=== PATIENT | male | born 1990 | race Caucasian/White ===

== ENCOUNTER 2018-08-01 06:16 | Day surgery (SDC) | payer OTHER ==
[2018-08-01] VITALS (14 sets, daily range): BP systolic 105–126; BP diastolic 47–65; PULSE 60–98; RESP 13–22; Ht 176.5 cm; Wt 66.1 kg
[~2018-08-01] VITALS: Ht 176.5 cm; Wt 66.1 kg
[2018-08-01] MEDS ORDERED: VANCOMYCIN 500 MG (PMX) 100 ML IVPB ONE (06:30)
[2018-08-01] MEDS ORDERED: BLVX50T PO (06:39)
[2018-08-01] MEDS ORDERED: CLON-429 PO (06:40)
[2018-08-01] MEDS ORDERED: BUPIVACAINE 0.5%/EPI (SDV) 30 ML INJ ONE (06:59)
[2018-08-01] MEDS ORDERED: ROPIVACAINE 0.5 % 30 ML VIAL ONE ×2 (06:59→07:29)
[2018-08-01] MEDS ORDERED: CLINDAMYCIN 600 MG INJ IV ONE (07:00)
[2018-08-01] MEDS ORDERED: CEFAZOLIN 2 GM/50 ML (PMX) 50 ML IVPB ONE (07:00)
--- NOTE | 2018-08-01 07:18 | HPN ---
Date/Time of Note Date/Time of Note DATE: 08/01/18 TIME: 07:18 Interval H&P Admission Note Pt. seen H&P reviewed: No system changes DAVONTE SCHUMACHER MD Aug 01, 2018 07:18
--- NOTE | 2018-08-01 07:21 | SIPON ---
Date/Time of Note Date/Time of Note DATE: 08/01/18 TIME: 09:18 Operative Report Preoperative Diagnosis LEFT SHOULDER POSTERIOR INSTABILITY WITH POSTERIOR LABRUM TEAR AND SLAP TEARS Postoperative Diagnosis SAME Operation/Procedure Performed LEFT SHOULDER ARTHROSCOPIC POSTERIOR LABRAL REPAIR, SLAP REPAIR Surgeon see signature line administrative assistant receptionist INNA VELASQUEZ MD Anesthesia: general, other (INTERSCALENE BLOCK) Estimated blood loss: minimal Transfusion Required none Specimen NONE Grafts/Implants ARTHREX KNOTLESS FIBERTAK SUTURE ANCHORS X 5 Complications none DAVONTE SCHUMACHER MD Aug 01, 2018 07:21
--- NOTE | 2018-08-01 07:22 | PREAC ---
Date/Time of Note Date/Time of Note DATE: 08/01/18 TIME: 07:20 Anesthesia Eval and Record Evaluation Time Pre-Procedure Interview DATE: 08/01/18 TIME: 07:20 Age 27 Sex male NPO: 8 hrs Preoperative diagnosis left shoulder SLAP tear Planned procedure left shoulder SLAP repair Past Medical History Past Medical History: Includes (history lymphoma ) Surgery & Anesthesia Issues No known issue Meds Anticoagulation: No Beta Aquiles within 24 hr: No Reason Beta Aquiles not given: Pt. not on B-Aquiles Reported Medications Clonazepam* (Klonopin*) 0.5 Mg Tab, 0.5 MG PO QHS, TAB 08/01/18 Fluvoxamine Maleate* (Luvox*) 50 Mg Tab, 150 MG PO DAILY, TAB 08/01/18 Current Medications Ibuprofen (Motrin) 600 mg Q6H PRN PO PAIN; Start 08/01/18 at 07:30; Status UNV Ketorolac Tromethamine (Toradol) 30 mg ONCE PRN IV PAIN; Start 08/01/18 at 07:30; Stop 08/04/18 at 07:29; Status UNV Ondansetron HCl (Zofran Inj) 4 mg Q6H PRN IV NAUSEA; Start 08/01/18 at 07:30; Status UNV Meds reviewed: Yes Allergies Coded Allergies: Penicillins (Verified Allergy, Severe, 08/01/18) rash morphine (Verified Allergy, Severe, 08/01/18) rash vancomycin (Verified Allergy, Severe, 08/01/18) rash Uncoded Allergies: tegaderm (Allergy, Unknown, scarred his skin, 08/01/18) Allergies Reviewed: Yes Labs/Studies Labs Reviewed: Reviewed by anesthesiologist test: N/A Pre-procedure Exam Airway: Adequate mouth opening, Adequate thyromental dist Mallampati: Mallampati II Teeth: Normal Lung: Normal Heart: Normal ASA Physical Status ASA physical status: 2 Emergency: None Planned Anesthetic General/MAC: ETT Nerve block: Brachial plexus (left) Planned Pain Management Single shot nerve block, Parenteral pain med Pre-operative Attestations Prior to commencing anesthesia and surgery, the patient was re-evaluated, there was verification of: *The patient's identity *The results of appropriate recent lab work and preoperative vital signs *The above evaluation not changing prior to induction *Anesthetic plan, risk benefits, alternative and complications discussed with patient/family; questions answered; patient/family understands, accepts and wishes to proceed. DIEGO GENTILE MD Aug 01, 2018 07:22
[2018-08-01] MEDS ORDERED: MIDAZOLAM 1 MG/ML 2 ML INJ ONE (07:26)
[2018-08-01] MEDS ORDERED: FENTAnyl 50 MCG/ML VIAL ONE (07:26)
--- NOTE | 2018-08-01 07:26 | PDOCDIS ---
Discharge Instructions DIAGNOSIS Discharge Diagnosis STABLE CONDITION [id number] Patient Condition: [id number] Good HOME CARE INSTRUCTIONS: [id number] Diet Instructions: Gvkta2s Regular ACTIVITY: Orgby4Xk Activity Restrictions: [id number] Rest between Activity Avoid heavy lifting Do not Drive Avoid Heavy Housework No Weight Bearing Special Exercises (OK FOR GENTLE ELBOW, WRIST AND HAND EXERCISES. OTHERWISE STAY IN SLING (EXCEPT TO SHOWER AFTER 48 HRS)) Miacy4Jo Bathing Restrictions: Cfyiw1x Shower Bnypi0Vn Activity Restrictions Ircyl7s SHOWER AFTER 48 HRS. KEEP Comment: INCISIONS DRY BY COVERING W/PRESS N SEAL FOLLOW UP/APPOINTMENTS Follow-up Plan WITH DR SCHUMACHER IN APPROXIMATELY 1 WEEK. DAVONTE SCHUMACHER MD Aug 01, 2018 07:26
[2018-08-01] MEDS ORDERED: ONDANSETRON 4 MG INJ IV PRN ×2 (07:30→09:00)
[2018-08-01] MEDS ORDERED: KETOROLAC 30 MG INJ IV PRN (07:30)
[2018-08-01] MEDS ORDERED: IBUPROFEN 600 MG TAB PO PRN (07:30)
[2018-08-01] MEDS ORDERED: CLINDAMYCIN 900 MG/D5W (PMX) 50 ML IVPB ONE (07:51)
[2018-08-01] MEDS ORDERED: SUCCINYLCHOLINE CHLORIDE 100 MG/5 ML SYG IV ONE (07:52)
[2018-08-01] MEDS ORDERED: LIDOCAINE 2% (SDV) 5 ML INJ ONE (07:52)
[2018-08-01] MEDS ORDERED: ROCURONIUM 50 MG INJ ONE (07:52)
[2018-08-01] MEDS ORDERED: PROPOFOL 40 ML ONE (07:52)
[2018-08-01] MEDS ORDERED: ONDANSETRON 4 MG INJ ONE (08:22)
[2018-08-01] MEDS ORDERED: FAMOTIDINE 20 MG INJ ONE (08:22)
[2018-08-01] MEDS ORDERED: DEXAMETHASONE 4 MG/ML 5 ML INJ ONE (08:22)
[2018-08-01] MEDS ORDERED: EPINEPHrine 1 MG/ML 30 ML INJ IRR ONE (08:26)
[2018-08-01] MEDS ORDERED: FENTAnyl 50 MCG/ML VIAL IV PRN (09:00)
[2018-08-01] MEDS ORDERED: MEPERIDINE 25 MG INJ IV PRN (09:00)
[2018-08-01] MEDS ORDERED: DIPHENHYDRAMINE 50 MG INJ IV PRN (09:00)
[2018-08-01] MEDS ORDERED: PROCHLORPERAZINE 10 MG INJ IV PRN (09:00)
[2018-08-01] MEDS ORDERED: OXYCODONE/ACETAMINOPHEN (5/325) TAB PO PRN (09:00)
[2018-08-01] MEDS ORDERED: HYDROmorphONE 1 MG/5 ML IV SYRINGE IV PRN ×3 (09:00)
[2018-08-01] MEDS ORDERED: NEOSTIGMINE 3 MG/3 ML SYRINGE ONE (09:27)
[2018-08-01] MEDS ORDERED: GLYCOPYRROLATE 0.4 MG INJ ONE (09:27)
[2018-08-01] MEDS ORDERED: EPHEDrine SULFATE 50 MG/5 ML SYG ONE (09:29)
--- NOTE | 2018-08-01 09:50 | PAC ---
Date/Time of Note Date/Time of Note DATE: 08/01/18 TIME: 09:49 Post-Anesthesia Notes Post-Anesthesia Note Last documented vital signs Vital Signs Date Temp Pulse Resp B/P (MAP) Pulse Ox O2 O2 Flow FiO2 Time Delivery Rate 08/01/18 98.4 77 18 105/55 99 07:26 (72) Activity: WNL Respiratory function: WNL Cardiovascular function: WNL Mental status: Baseline Pain reasonably controlled: Yes Hydration appropriate: Yes Nausea/Vomiting absent: Yes Comments BP: 113/65 HR: 91 RR: 15 T: 97.5 SaO2: 100% DIEGO PRASAD MD Aug 01, 2018 09:50
--- NOTE | 2018-08-01 15:03 | OPR ---
DATE OF OPERATION: 08/01/2018 PREOPERATIVE DIAGNOSES: 1. Left shoulder posterior labral tear. 2. Left shoulder SLAP tear. 3. 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 POSTOPERATIVE DIAGNOSES: 1. Left shoulder posterior labral tear. 2. Left shoulder SLAP tear. 3. Left shoulder multidirectional instability with a combined pathology. 4. Left shoulder partial anterior labral tear. PROCEDURE PERFORMED: 1. Left shoulder arthroscopic posterior labral repair. 2. Left shoulder arthroscopic SLAP repair. 3. Left shoulder arthroscopic anterior labral repair (4 total anchors). 4. Left shoulder examination under anesthesia: multidirectional laxity. SURGEON: Dwight Cherry MD PREPRESS OPERATOR: Fausto Concepcion MD ANESTHESIA: General endotracheal with regional block. ANESTHESIOLOGIST: Dr. De Dios. ESTIMATED BLOOD LOSS: Minimal. COMPLICATIONS: None. SPECIMENS: None. IMPLANTS: Arthrex knotless FiberTak anchors x5. INDICATIONS: Bryce is a 27-year-old male who suffered several injuries to his left shoulder involving posterior subluxation and 1 dislocation. X-rays and MRI scan revealed a posterior labral tear, a sma ll reverse Hill-Sachs lesion. Physical exam revealed moderate generalized ligamentous laxity. After discussing the risks and benefits of operative versus nonoperative treatment with the patient at [facility], he elected to proceed with surgical intervention. PROCEDURE: The patient was brought to the operating room, placed supine on the operating table. An uncomplicated regional block was placed by the anesthesiologist and general anesthesia was induced. The correct surgical site had been identified and marked preoperatively. He was turned on to his marino e, an axillary roll was placed, and the thorax was stabilized with a beanbag. The arm was prepped an d draped in sterile surgical fashion. The arm was examined and noted to have full range of motion wi th a 2+ laxity anteriorly inferiorly with 3+ laxity posteriorly. The arm was placed in 10 pounds of balanced glenohumeral suspension. A timeout was called. The posterior arthroscopy portal was created, and the arthroscope was introduced into the joint. ARTHROSCOPIC FINDINGS: The very superior labrum was intact, but there was a flap lesion posteriorly. There was a posterior labral tear that extended all the way down to the 6 o'clock position. The la bela was intact from 6 o'clock to approximately 4 o'clock, but then there was a fairly high-grade par tial peel back type tear along the anterior labrum between 4 o'clock and 2:30 o'clock. There was no Hill-Sachs lesion. The quality of the tissue was fairly good, but it was thin and stretchy, consiste nt with a generalized ligamentous laxity. The articular side of the supraspinatus, infraspinatus and subscapularis were normal. Two anterior portals were created and the arthroscope was placed in the anterior superior position. A rasp was used to help to freshen up the edge of the glenoid bone as well as create a bleeding surfa ce along the labrum and the adjacent capsule as a plication would be necessary after preparation anch ors were placed. Posterior labral repair: Working from inferior to superior 3 knotless Arthrex FiberTak sutures were placed, one at the 6:30 o'clock position, 1 at the 7:30 o'clock position and one at the 9 o'clock pos ition. Using standard pinch tuck technique, the posterior capsule and labrum were plicated and then reapproximated back down to bone anatomically, completing the posterior labral repair. Approximately 8 to 10 mm of capsule was added due to the patient's increased ligamentous laxity. SLAP REPAIR: Along the superior labrum there was detachment extending up to the 10:30 o'clock positi on. Working through the posterior cannula a single knotless FiberTak anchor was placed at the 10 o'c lock position superiorly. A spectrum was used to pass the suture around the labrum and then through the locking mechanism of the anchor. The suture was then snugged down in standard technique creating a very nice knotless repair of the SLAP lesion. ANTERIOR LABRAL REPAIR: There was a fairly high-grade partial tear at the anterior 3:30 o'clock posi tion on the labrum. Another anchor was placed at this position, just adjacent to the articular surfa ce. The suture was placed around the labrum and then used to snug the labral detachment back down to the anterior glenoid anatomically. The posterior portal was closed with a #1 PDS suture. The shoulder was copiously irrigated and instr uments were removed. Portals were closed with buried 4-0 Monocryl sutures followed by Steri-Strips a nd a sterile dressing. The patient was brought to recovery room in stable condition. There were no complications. PREPRESS OPERATOR: The assistance of Dr. Concepcion was essential throughout this case to provide safe positi oning of the shoulder in space, help hold and manipulate the arthroscope while the surgeon used both hands, assisted with placement of the suture anchors, passing of sutures, and tying of the knots. A skilled assistant front desk manager is always necessary in these cases. Dictated By: DWIGHT ORTEZ/VINNIE Conf#: [id number] DID#: [id number]
== END 2018-08-01 11:33 | disposition home or self-care (01) ==
LOC: SDS 06:16
PROVIDERS: ATTEND Orthopaedic Surgery Sports Medicine
DX: S43.432D Superior glenoid labrum lesion of left shoulder, subsequent encounter (principal); X58.XXXD Exposure to other specified factors, subsequent encounter; S43.492D Other sprain of left shoulder joint, subsequent encounter; M25.312 Other instability, left shoulder
CPT/HCPCS: 29807; 71045; J0171; J1100; J2250; J2405; J2710; J2795; J3010